=== PATIENT | female | born 1995 | race Two or more races ===

== ENCOUNTER 2022-09-22 15:33 | Emergency (ER) | payer SELFPAY ==
--- NOTE | 2022-09-22 16:02 | ED Physician Documentation ---
History of Present Illness - Stated complaint Stated Complaint: FEM - Additonal information Additional information: 27-year-old female presents to the emergency department for evaluation of lower pelvic pain and vaginal bleeding in the first trimester . LMP 08/06/2022. G1, P0. Patient states that last night she noticed some blood after urinating that she describes as bright red. Today she felt like she was having black dry discharge. No fevers. She does endorse some pain in her right lower abdomen. No pertinent past surgical history. Taking vitamins only. Has not yet established with an OB provider. History was exceedingly difficult to achieve. The patient hails from [facility] and speaks [place] though our hand binder stripper #[id number] seem to have a difficult time understanding the patient. However she does appear alert and well with normal vital signs for age. Review of Systems Unable to obtain: Other (History obtained with hand binder stripper #[id number]. Very difficult to achieve even with the hand binder stripper as I believe the 2 parties are speaking different dialect's of [place]) GI: reports: Abdominal Pain : reports: LMP (08/06/2022), Vaginal bleeding, Now EGA Skin: reports: Reviewed and negative Musculoskeletal: reports: Reviewed and negative PD PAST MEDICAL HISTORY - Present Medications Home Medications: Ambulatory Orders Medication Instructions Recorded Confirmed Pnv No.95/Ferrous Fum/Folic AC 1 tab PO DAILY 09/22/22 09/22/22 [ Tablet] - Allergies Allergies/Adverse Reactions: Allergies Allergy/AdvReac Type Severity Reaction Status Date / Time aspirin Allergy Unknown Verified 09/22/22 16:02 PD ED PE NORMAL - General General: Alert and oriented X 3, No acute distress, Well developed/nourished - HEENT HEENT: Atraumatic, Moist mucous membranes - Neck Neck: Supple, no meningeal sign - Cardiac Cardiac: RRR, No murmur - Respiratory Respiratory: No respiratory distress, Clear bilaterally - Abdomen Abdomen: Normal bowel sounds, Soft, Other (No surgical scars on abdomen). No: Non tender (Mild tenderness elicited with palpation of the right lower quadrant and lower pelvic region without guarding or rebound.) - Derm Derm: Normal color, Warm and dry, No rash - Extremities Extremities: No deformity - Neuro Neuro: Alert and oriented X 3, property claims adjuster 2-12 intact Eye Opening: Spontaneous Motor: Obeys Commands Verbal: Oriented GCS Score: 15 Results - Vitals Vitals: Vital Signs - 24 hr 09/22/22 15:53 Temperature 35.9 C L Heart Rate 74 Respiratory 20 Rate Blood Pressure 120/77 O2 Saturation 99 Oxygen O2 Source Room air - Labs Labs: Laboratory Tests 09/22/22 09/22/22 09/22/22 16:06 16:06 16:06 WBC 9.5 RBC 4.63 Hgb 13.3 Hct 39.7 MCV 85.7 MCH 28.7 MCHC 33.5 RDW 13.8 Plt Count 383 MPV 9.7 Neut # (Auto) 5.9 Lymph # (Auto) 2.7 Kern # (Auto) 0.7 Eos # (Auto) 0.1 Baso # (Auto) 0.0 Absolute Nucleated RBC 0.00 Nucleated RBC % 0.0 Sodium 134 L Potassium 3.6 Chloride 104 Carbon Dioxide 23 Anion Gap 7.0 BUN 8 Creatinine 0.5 Estimated GFR (MDRD) 146 Glucose 104 H Calcium 8.6 Total Bilirubin 0.5 AST 15 ALT 16 Alkaline Phosphatase 81 Total Protein 7.2 Albumin 3.6 Globulin 3.6 Albumin/Globulin Ratio 1.0 Lipase 34 HCG, Quant Urine Color Urine Clarity Urine pH Ur Specific Argyle Urine Protein Urine Glucose (UA) Urine Ketones Urine Occult Blood Urine Nitrite Urine Bilirubin Urine Urobilinogen Ur Leukocyte Esterase Urine RBC Urine WBC Ur Squamous Epith Cells Urine Bacteria Urine Mucus Ur Microscopic Review Urine Culture Comments Blood Type O POSITIVE 09/22/22 09/22/22 16:06 16:16 WBC RBC Hgb Hct MCV MCH MCHC RDW Plt Count MPV Neut # (Auto) Lymph # (Auto) Kern # (Auto) Eos # (Auto) Baso # (Auto) Absolute Nucleated RBC Nucleated RBC % Sodium Potassium Chloride Carbon Dioxide Anion Gap BUN Creatinine Estimated GFR (MDRD) Glucose Calcium Total Bilirubin AST ALT Alkaline Phosphatase Total Protein Albumin Globulin Albumin/Globulin Ratio Lipase HCG, Quant 87441.00 Urine Color YELLOW Urine Clarity CLEAR Urine pH 7.0 Ur Specific Argyle 1.015 Urine Protein NEGATIVE Urine Glucose (UA) NEGATIVE Urine Ketones NEGATIVE Urine Occult Blood SMALL H Urine Nitrite NEGATIVE Urine Bilirubin NEGATIVE Urine Urobilinogen 0.2 (NORMAL) Ur Leukocyte Esterase NEGATIVE Urine RBC 0-5 Urine WBC 0-3 Ur Squamous Epith Cells MOD Squamous H Urine Bacteria Few Urine Mucus Few Strands Ur Microscopic Review INDICATED Urine Culture Comments NOT INDICATED Blood Type - Rads (name of study) OB US Relevant Findings:: Other (Per orthopedic radiologic technologist 5-week 5-day fetus with yolk sac but no pole. 2.8 cm right ovarian cyst. No complicating findings.) PD Medical Decision Making - ED course Complexity details: reviewed results, re-evaluated patient, d/w patient ED course: 27-year-old female who is presents emergency department for evaluation of vaginal spotting that began yesterday. LMP 08/06/2022. Today labs show no evidence of urinary tract infection. CBC and electrolytes as interpreted by myself are unremarkable. Her hCG is over 32,000. She is Rh+. We did do an OB ultrasound that showed a 5-week 5-day fetus with yolk sac but no pole. There was a right ovarian cyst. No complicating features with the and nothing to suggest ectopic/heterotopic. I suspect that the vaginal spotting was implantation. I discussed the labs and imaging finding with the patient and her using a travertine installer. They have been given resources to follow-up with OB. The usual emergent return precautions for worsening symptoms were discussed. Departure - Departure Disposition: 01 Home, Self Care Clinical Impression: Vaginal bleeding affecting early Condition: Stable Record reviewed to determine appropriate education?: Yes Comments: The ultrasound showed that you are 5 weeks 5 days . It is too early at this time to see a heart rate on the baby. There is a small ovarian cyst On the right ovary which is a common finding. Your labs today in the emergency department did not show any worrisome findings.. Continue to follow closely with OB and schedule an appointment as soon as you are able. Continue to take your vitamins Reasons to return to the emergency department would include heavy vaginal bleeding where you saturate a pad every hour for 4 more hours, any fevers, severe abdominal pain, uncontrolled vomiting La ecografa mostr que tiene 5 semanas y 5 sullivan de embarazo. Es demasiado pronto en [place] momento para maureen shara frecuencia cardaca en el beb. Hay un pequeo quiste ovrico en el ovario derecho que es un hallazgo comn. Julia laboratorios de hoy en el departamento de emergencias no mostraron ningn hallazgo preocupante. Contine siguiendo de cerca con el obstetra y programe shara ruddy coello pronto jerel pueda. Contine tomando julia vitaminas prenatales Las razones para regresar al departamento de emergencias incluiran sangrado vaginal abundante donde satura shara toalla sanitaria cada hora radha 4 horas ms, fiebre, dolor abdominal intenso, vmitos incontrolables
[2022-09-22 16:07] VITALS: BP 120/77
[2022-09-22 16:22] LABS: BASOPHILS % (AUTO) 0.4 %; EOSINOPHILS # (AUTO) 0.1 10^3/uL (0.0-0.7); EOSINOPHILS % (AUTO) 1.4 %; HCT - HEMATOCRIT 39.7 % (37.0-47.0); HGB - HEMOGLOBIN 13.3 g/dL (12.0-16.0); LYMPHOCYTES # (AUTO) 2.7 10^3/uL (1.5-3.5); LYMPHOCYTES % (AUTO) 28.3 %; MEAN CORPUSCULAR HEMOGLOBIN 28.7 pg (27.0-31.0); MEAN CORPUSCULAR HGB CONC 33.5 g/dL (32.0-36.0); MEAN CORPUSCULAR VOLUME 85.7 fL (81.0-99.0); MEAN PLATELET VOLUME 9.7 fL (7.9-10.8); MONOCYTES # (AUTO) 0.7 10^3/uL (0.0-1.0); MONOCYTES % (AUTO) 7.8 %; NEUTROPHILS # (AUTO) 5.9 10^3/uL (1.5-6.6); NEUTROPHILS % (AUTO) 61.7 %; PLT - PLATELET COUNT 383 10^3/uL (130-450); RED BLOOD COUNT 4.63 10^6/uL (4.20-5.40); RED CELL DISTRIBUTION WIDTH 13.8 % (12.0-15.0); WHITE BLOOD COUNT 9.5 x10^3/uL (4.8-10.8)
[2022-09-22 16:26] LABS: BILIRUBIN,URINE NEGATIVE (NEGATIVE); GLUCOSE, URINE (UA) NEGATIVE (NEGATIVE); KETONES,URINE (UA) NEGATIVE (NEGATIVE); LEUKOCYTE ESTERASE, URINE NEGATIVE (NEGATIVE); NITRITE,URINE NEGATIVE (NEGATIVE); OCCULT BLOOD,URINE SMALL (NEGATIVE); PROTEIN,URINE NEGATIVE (NEGATIVE); UROBILINOGEN,URINE 0.2 (NORMAL) E.U./dL (NORMAL)
[2022-09-22 16:29] LABS: ALBUMIN 3.6 g/dL (3.2-5.5); BILIRUBIN,TOTAL 0.5 mg/dL (0.2-1.0); CALCIUM 8.6 mg/dL (8.5-10.3); CREATININE 0.5 mg/dL (0.4-1.0); POTASSIUM 3.6 mmol/L (3.5-5.0); TOTAL PROTEIN 7.2 g/dL (6.7-8.2)
[2022-09-22 16:30] LABS: CLARITY,URINE CLEAR (CLEAR)
[2022-09-22 16:33] LABS: RBC,URINE 0-5 /HPF (0-5); SQUAMOUS EPITHELIAL CELL,UR MOD Squamous (<= Few); WBC,URINE 0-3 /HPF (0-5)
[2022-09-22 16:34] LABS: BACTERIA,URINE Few /HPF (None Seen); MUCUS,URINE Few Strands
--- NOTE | 2022-09-22 18:15 | Ultrasound Report ---
PROCEDURE: OB First Trimester INDICATIONS: vaginal bleeding OUTSIDE/PRIOR DATING DATA: Last menstrual period (LMP): Unknown. LMP-based estimated date of delivery (PHAN): Unknown. First dating scan (date and location): 09/22/2022. Estimated date of delivery (PHAN) from first dating scan: 05/20/2023. TECHNIQUE: Real-time scanning was performed of the fetus and maternal pelvic organs, with image documentation. Transabdominal and transvaginal. COMPARISON: None. FINDINGS: Intrauterine gestational sac present. Embryo: Intrauterine gestational sac measuring is 0.94 cm corresponding to estimated gestational age 5 weeks 5 days. Heart rate: Not detected at this time. Other: A yolk sac is seen. No perigestational fluid collection. Measurement variability in dating: +/- 4 weeks by LMP, +/- 7 days by mean sac diameter (use before 6 weeks gestation if crown-rump length not able to be measured), +/- 5 days by crown-rump length (6-12 weeks gestation). Maternal organs: Ovaries appear within normal limits. Simple right ovarian cyst measuring 3.2 cm. IMPRESSION: 1. Intrauterine gestational sac. Estimated gestational age 5 weeks 5 days. No pole at this time . A yolk sac is seen. Recommend short-term follow-up OB ultrasound. 2. No perigestational hemorrhage. Reviewed by: Tj Oswald MD on 09/22/2022 6:13 PM PDT Approved by: Tj Oswald MD on 09/22/2022 6:13 PM PDT Station ID: [id number]
--- NOTE | 2022-09-22 18:15 | Ultrasound Report ---
PROCEDURE: OB First Trimester INDICATIONS: vaginal bleeding OUTSIDE/PRIOR DATING DATA: Last menstrual period (LMP): Unknown. LMP-based estimated date of delivery (PHAN): Unknown. First dating scan (date and location): 09/22/2022. Estimated date of delivery (PHAN) from first dating scan: 05/20/2023. TECHNIQUE: Real-time scanning was performed of the fetus and maternal pelvic organs, with image documentation. Transabdominal and transvaginal. COMPARISON: None. FINDINGS: Intrauterine gestational sac present. Embryo: Intrauterine gestational sac measuring is 0.94 cm corresponding to estimated gestational age 5 weeks 5 days. Heart rate: Not detected at this time. Other: A yolk sac is seen. No perigestational fluid collection. Measurement variability in dating: +/- 4 weeks by LMP, +/- 7 days by mean sac diameter (use before 6 weeks gestation if crown-rump length not able to be measured), +/- 5 days by crown-rump length (6-12 weeks gestation). Maternal organs: Ovaries appear within normal limits. Simple right ovarian cyst measuring 3.2 cm. IMPRESSION: 1. Intrauterine gestational sac. Estimated gestational age 5 weeks 5 days. No pole at this time . A yolk sac is seen. Recommend short-term follow-up OB ultrasound. 2. No perigestational hemorrhage. Reviewed by: Tj Oswald MD on 09/22/2022 6:14 PM PDT Approved by: Tj Oswald MD on 09/22/2022 6:14 PM PDT Station ID: [id number]
== END 2022-09-22 18:03 | disposition home or self-care (01) ==
LOC: ED 15:33
DX: O20.9 Hemorrhage in early pregnancy, unspecified (principal); Z3A.01 Less than 8 weeks gestation of pregnancy
CPT/HCPCS: 36415; 80053; 81001; 81003; 83690; 84702; 85025; 86900; 86901; 87086; 99283; 99284

== ENCOUNTER 2022-10-16 08:00 | Outpatient (CLI) | payer MEDICAID ==
[2022-10-16 17:13] LABS: BILIRUBIN,URINE NEGATIVE (NEGATIVE); GLUCOSE, URINE (UA) NEGATIVE (NEGATIVE); KETONES,URINE (UA) NEGATIVE (NEGATIVE); LEUKOCYTE ESTERASE, URINE NEGATIVE (NEGATIVE); NITRITE,URINE NEGATIVE (NEGATIVE); OCCULT BLOOD,URINE NEGATIVE (NEGATIVE); PROTEIN,URINE NEGATIVE (NEGATIVE); UROBILINOGEN,URINE 0.2 (NORMAL) E.U./dL (NORMAL)
[2022-10-16 17:54] LABS: AMORPHOUS SEDIMENT,UR Few /LPF; BACTERIA,URINE Many /HPF (None Seen); CLARITY,URINE HAZY (CLEAR); CRYSTALS,URINE 3-5 Calcium Oxalate /LPF; RBC,URINE 0-5 /HPF (0-5); SQUAMOUS EPITHELIAL CELL,UR MANY Squamous (<= Few)
== END 2022-10-16 23:59 | disposition home or self-care (01) ==
LOC: LAB.WC 08:00
PROVIDERS: ATTEND Nurse Practitioner
DX: Z34.90 Encounter for supervision of normal pregnancy, unspecified, unspecified trimester (principal)
CPT/HCPCS: 81001; 87086

== ENCOUNTER 2022-11-10 12:45 | Outpatient (CLI) | payer MEDICAID ==
[2022-11-10 13:01] LABS: BASOPHILS % (AUTO) 0.3 %; EOSINOPHILS # (AUTO) 0.1 10^3/uL (0.0-0.7); EOSINOPHILS % (AUTO) 0.9 %; HCT - HEMATOCRIT 36.7 % (37.0-47.0); HGB - HEMOGLOBIN 12.3 g/dL (12.0-16.0); LYMPHOCYTES # (AUTO) 2.1 10^3/uL (1.5-3.5); LYMPHOCYTES % (AUTO) 19.5 %; MEAN CORPUSCULAR HGB CONC 33.5 g/dL (32.0-36.0); MEAN CORPUSCULAR VOLUME 86.6 fL (81.0-99.0); MEAN PLATELET VOLUME 9.4 fL (7.9-10.8); MONOCYTES # (AUTO) 0.7 10^3/uL (0.0-1.0); MONOCYTES % (AUTO) 6.1 %; NEUTROPHILS # (AUTO) 7.8 10^3/uL (1.5-6.6); NEUTROPHILS % (AUTO) 72.7 %; PLT - PLATELET COUNT 370 10^3/uL (130-450); RED BLOOD COUNT 4.24 10^6/uL (4.20-5.40); RED CELL DISTRIBUTION WIDTH 13.7 % (12.0-15.0); WHITE BLOOD COUNT 10.7 x10^3/uL (4.8-10.8)
[2022-11-10 17:24] LABS: BILIRUBIN,URINE NEGATIVE (NEGATIVE); GLUCOSE, URINE (UA) NEGATIVE (NEGATIVE); KETONES,URINE (UA) NEGATIVE (NEGATIVE); LEUKOCYTE ESTERASE, URINE NEGATIVE (NEGATIVE); NITRITE,URINE NEGATIVE (NEGATIVE); OCCULT BLOOD,URINE NEGATIVE (NEGATIVE); PH,URINE 7.5 PH (5.0-7.5); PROTEIN,URINE NEGATIVE (NEGATIVE); UROBILINOGEN,URINE 1 (NORMAL) E.U./dL (NORMAL)
[2022-11-10 18:16] LABS: CLARITY,URINE CLEAR (CLEAR); RBC,URINE None Seen /HPF (0-5); SQUAMOUS EPITHELIAL CELL,UR MOD Squamous (<= Few)
[2022-11-10 18:17] LABS: BACTERIA,URINE Few /HPF (None Seen); CRYSTALS,URINE 3-5 Calcium Oxalate /LPF; MUCUS,URINE Moderate Strands
[2022-11-11 05:12] LABS: HBsAG SCREEN Negative (Negative)
[2022-11-11 07:09] LABS: HCV AB Non Reactive (Non Reactive); HIV SCREEN 4TH GENERATION Non Reactive (Non Reactive); RPR Non Reactive (Non Reactive)
[2022-11-11 09:09] LABS: VARICELLA-ZOSTER AB IGG 664 index (Immune >165)
== END 2022-11-10 12:46 | disposition home or self-care (01) ==
LOC: LAB 12:45
PROVIDERS: ATTEND Nurse Practitioner
DX: Z34.90 Encounter for supervision of normal pregnancy, unspecified, unspecified trimester (principal)
CPT/HCPCS: 36415; 81001; 85025; 86592; 86762; 86787; 86803; 86850; 86900; 86901; 87086; 87340; 87389

== ENCOUNTER 2023-01-02 14:03 | Outpatient (CLI) | payer MEDICAID ==
--- NOTE | 2023-01-02 16:27 | Ultrasound Report ---
PROCEDURE: OB 14+ Weeks INDICATIONS: SUPERVISION OF OUTSIDE/PRIOR DATING DATA: Last menstrual period (LMP): 08/06/2022. LMP-based estimated date of delivery (PHAN): 05/13/2023. First dating scan (date and location): 09/22/2022. Estimated date of delivery (PHAN) from first dating scan: 05/20/2023. The below data below was generated using the PHAN of 05/23/2023 TECHNIQUE: Real-time scanning was performed of the fetus, with image documentation and biometric measurements. Endovaginal scanning: Not performed. COMPARISON: 09/22/2022 FINDINGS: General: A single living intrauterine gestation is present. Presentation: Breech Placenta: Placental position is posterior, without previa. Amniotic fluid index: 18.5 cm, within normal limits for gestational age. heart rate: 140 beats per minute. Maternal cervical canal: 5.4 cm long; normal length is 2.5 cm or more. biometrics: Biparietal diameter: 4.7 cm, 20 weeks 2 days Head circumference: 17.0 cm, 19 weeks 4 days Abdominal circumference: 14.7 cm, 20 weeks Femur length: 3.14 cm, 19 weeks 5 days Estimated gestational age from initial scan: 19 weeks 6 days Composite gestational age from present scan: 19 weeks 6 days Estimated weight and percentile: 319 g, 47th percentile Measurement variability for biometric dating: +/- 10 days from 12-20 weeks gestation, +/- 2 weeks fro m 20-30 weeks gestation, +/- 3 weeks for 30 weeks gestation or later. Anatomic survey: Neuro: Ventricles are non-dilated at less than 10 mm. Cisterna magna is normal at 3-11 mm. Cerebel lum is normal in size and morphology. Nuchal skin fold: Normal at less than 6 mm between 14-20 weeks gestational age. Face: Nose and lips, facial profile are normal. Spine: No evidence for spina bifida. Heart: 4-chambered heart is present. Outflow tracts not evaluated. Diaphragm: Diaphragm is intact. Stomach: Left-sided stomach is present. Kidneys: No hydronephrosis. Normal is less than 5 mm in 2nd trimester, less than 7 mm in 3rd trimester. Cord: 3-vessel cord has orthotopic insertion. Bladder: Normal in size. Extremities: Not adequately evaluated. IMPRESSION: Single living intrauterine at 19 weeks 6 days, PHAN of 05/23/2023. Estimated weight of 319 g, 47th percentile. Cardiac outflow tracts not evaluated, and extremities are not adequately evaluated. Otherwise, normal anatomy survey. Reviewed by: Sanford Marx on 01/02/2023 4:26 PM PDT Approved by: Sanford Marx on 01/02/2023 4:26 PM PDT Station ID: [id number]
== END 2023-01-02 14:04 | disposition home or self-care (01) ==
LOC: DI 14:03
PROVIDERS: ATTEND Obstetrics & Gynecology
DX: Z34.92 Encounter for supervision of normal pregnancy, unspecified, second trimester (principal)

== ENCOUNTER 2023-01-05 08:00 | Outpatient (CLI) | payer MEDICAID ==
[2023-01-05 16:26] LABS: BILIRUBIN,URINE NEGATIVE (NEGATIVE); GLUCOSE, URINE (UA) NEGATIVE (NEGATIVE); KETONES,URINE (UA) TRACE mg/dL (NEGATIVE); LEUKOCYTE ESTERASE, URINE TRACE (NEGATIVE); NITRITE,URINE NEGATIVE (NEGATIVE); OCCULT BLOOD,URINE NEGATIVE (NEGATIVE); PROTEIN,URINE NEGATIVE (NEGATIVE); UROBILINOGEN,URINE 0.2 (NORMAL) E.U./dL (NORMAL)
[2023-01-05 16:28] LABS: CLARITY,URINE CLEAR (CLEAR)
[2023-01-05 16:35] LABS: BACTERIA,URINE Many /HPF (None Seen); CRYSTALS,URINE 0-2 Calcium Oxalate /LPF; RBC,URINE 0-5 /HPF (0-5); SQUAMOUS EPITHELIAL CELL,UR MOD Squamous (<= Few)
== END 2023-01-05 23:59 | disposition home or self-care (01) ==
LOC: LAB 08:00
PROVIDERS: ATTEND Obstetrics & Gynecology
DX: R30.0 Dysuria (principal)
CPT/HCPCS: 81001; 87086

== ENCOUNTER 2023-03-08 09:51 | Outpatient (CLI) | payer MEDICAID ==
[2023-03-08 11:14] LABS: HCT - HEMATOCRIT 31.6 % (37.0-47.0); HGB - HEMOGLOBIN 10.3 g/dL (12.0-16.0); MEAN CORPUSCULAR HEMOGLOBIN 29.2 pg (27.0-31.0); MEAN CORPUSCULAR HGB CONC 32.6 g/dL (32.0-36.0); MEAN CORPUSCULAR VOLUME 89.5 fL (81.0-99.0); MEAN PLATELET VOLUME 9.5 fL (7.9-10.8); RED BLOOD COUNT 3.53 10^6/uL (4.20-5.40); RED CELL DISTRIBUTION WIDTH 13.6 % (12.0-15.0)
== END 2023-03-08 09:52 | disposition home or self-care (01) ==
LOC: LAB 09:51
PROVIDERS: ATTEND Obstetrics & Gynecology
DX: Z34.90 Encounter for supervision of normal pregnancy, unspecified, unspecified trimester (principal)
CPT/HCPCS: 36415; 82950; 85027; 86850

== ENCOUNTER 2023-03-08 15:55 | Outpatient (CLI) | payer MEDICAID ==
--- NOTE | 2023-03-08 17:26 | Ultrasound Report ---
PROCEDURE: OB F/U or Repeat INDICATIONS: SUPERVISION OF OUTSIDE/PRIOR DATING DATA: Last menstrual period (LMP): 08/06/2022. LMP-based estimated date of delivery (PHAN): 05/13/2023. First dating scan (date and location): 09/22/2022. Estimated date of delivery (PHAN) from first dating scan: 08/18/2023. The below data below was generated using the clinical PHAN of 05/23/2023 TECHNIQUE: Real-time scanning was performed of the fetus, with image documentation. Endovaginal scanning: Not performed. COMPARISON: OB ultrasound 01/02/2023. FINDINGS: General: A single living intrauterine gestation is present. Presentation: Breech Placenta: Placental position is posterior fundal, without previa. Amniotic fluid index: 21 cm, within normal limits for gestational age. Largest pocket 6.8 cm. heart rate: 143 beats per minute. Maternal cervical canal: 3.8 cm long; normal length is 2.5 cm or more. Estimated gestational age from initial scan: 29 weeks 1 day Other: RVOT and LVOT are within normal limits. Profile, nose and lips, and right and left extremity a re within normal limits. IMPRESSION: 1. Marsh living intrauterine at 29 weeks 1 day based on prior dating. 2. Normal placenta and amniotic fluid. 3. RVOT and LVOT heart views are within normal limits. Profile, nose and lips, and right and left ext remity are within normal limits. Reviewed by: Tj Oswald MD on 03/08/2023 5:24 PM PST Approved by: Tj Oswald MD on 03/08/2023 5:24 PM PST Station ID: [id number]
== END 2023-03-08 15:56 | disposition home or self-care (01) ==
LOC: DI 15:55
PROVIDERS: ATTEND Obstetrics & Gynecology
DX: Z34.92 Encounter for supervision of normal pregnancy, unspecified, second trimester (principal)
CPT/HCPCS: 36415; 82950; 85027; 86850

== ENCOUNTER 2023-03-16 14:20 | Outpatient (CLI) | payer MEDICAID ==
[2023-03-16 14:54] LABS: CREATININE 0.4 mg/dL (0.6-1.3); URIC ACID 3.3 mg/dL (2.3-6.6)
[2023-03-16 15:05] LABS: BILIRUBIN,URINE NEGATIVE (NEGATIVE); GLUCOSE, URINE (UA) NEGATIVE (NEGATIVE); KETONES,URINE (UA) NEGATIVE (NEGATIVE); LEUKOCYTE ESTERASE, URINE NEGATIVE (NEGATIVE); NITRITE,URINE NEGATIVE (NEGATIVE); OCCULT BLOOD,URINE NEGATIVE (NEGATIVE); PH,URINE 6.5 PH (5.0-7.5); PROTEIN,URINE NEGATIVE (NEGATIVE); UROBILINOGEN,URINE 0.2 (NORMAL) E.U./dL (NORMAL)
[2023-03-16 15:28] LABS: BACTERIA,URINE Few /HPF (None Seen); CLARITY,URINE CLEAR (CLEAR); MUCUS,URINE Few Strands; RBC,URINE 0-5 /HPF (0-5); SQUAMOUS EPITHELIAL CELL,UR MOD Squamous (<= Few); WBC,URINE 0-3 /HPF (0-5)
[2023-03-16 15:33] LABS: CREATININE,URINE 79.6 mg/dL; PROTEIN/CREATININE RATIO,URINE 0.2 (<=0.2)
== END 2023-03-16 14:21 | disposition home or self-care (01) ==
LOC: LAB 14:20
PROVIDERS: ATTEND Nurse Practitioner
DX: M79.644 Pain in right finger(s) (principal)
CPT/HCPCS: 36415; 81001; 82565; 82570; 82728; 84156; 84520; 84550; 85651

== ENCOUNTER 2023-03-29 12:15 | Observation (INO) | payer MEDICAID ==
[2023-03-29] MEDS ORDERED: ACETAMINOPHEN 500 MG TABLET PO PRN (13:07)
--- NOTE | 2023-03-29 13:21 | PROVIDER PROGRESS NOTE ---
- HPI Current : Vital Signs Temperature 98.2 F 03/29/23 12:44 Heart Rate 92 03/29/23 12:44 Respiratory Rate 17 03/29/23 12:44 Blood Pressure 108/71 03/29/23 12:44 O2 Saturation 98 03/29/23 12:44 Temperature 98.2 F 03/29/23 13:15 Heart Rate 92 03/29/23 12:44 Respiratory Rate 17 03/29/23 12:44 Blood Pressure 108/71 03/29/23 12:44 O2 Saturation 98 03/29/23 12:44 If not protocol: Oxygen Flow, liters/minute
[2023-03-29] MEDS ORDERED: BETAMETHASONE 30 MG/5 ML VIAL IM ONE (13:22)
[2023-03-29 13:41] LABS: RUPTURE OF MEMBRANES PLUS NEGATIVE (NEGATIVE)
[2023-03-29 15:04] LABS: BILIRUBIN,URINE NEGATIVE (NEGATIVE); GLUCOSE, URINE (UA) NEGATIVE (NEGATIVE); KETONES,URINE (UA) TRACE mg/dL (NEGATIVE); LEUKOCYTE ESTERASE, URINE NEGATIVE (NEGATIVE); NITRITE,URINE NEGATIVE (NEGATIVE); OCCULT BLOOD,URINE NEGATIVE (NEGATIVE); PROTEIN,URINE NEGATIVE (NEGATIVE); UROBILINOGEN,URINE 0.2 (NORMAL) E.U./dL (NORMAL)
[2023-03-29 15:09] LABS: CLARITY,URINE CLEAR (CLEAR)
[2023-03-29 15:16] LABS: BACTERIA,URINE None Seen /HPF (None Seen); RBC,URINE 0-5 /HPF (0-5); SQUAMOUS EPITHELIAL CELL,UR FEW Squamous (<= Few); WBC,URINE 0-3 /HPF (0-5)
[2023-03-29] MEDS ORDERED: MORPHINE 2 MG/ML CARPUJECT IM STA (15:35)
[2023-03-29] MEDS ORDERED: SODIUM CHLORIDE FLUSH 0.9% 10 ML SYRINGE IVP PRN (15:45)
[2023-03-29] MEDS ORDERED: LACTATED RINGERS 1,000 ML IV SCH (16:00)
--- NOTE | 2023-03-29 16:47 | HISTORY & PHYSICAL EXAMINATION ---
Admit History - Visit Reason Visit Reason: Contractions - : 1 Parity: 0 Risk/History: positive: None Smoking Status: Never smoker - Mother's Labs Mother's Blood Type: positive: O Mother's RH: positive: Positive GBS: positive: Other (Unknown) Rubella Status: positive: Immune - Other Maternal History Other Maternal History: HPI: Patient is a 27-year-old G1, P0 at 33 weeks 4 days gestation presenting for lower abdominal pain. This started approximately 3 days ago and is having intermittent low back pain that radiates to the front, but this has subsided. She has good movement. Denies loss of fluid. No PADRON/BV or RUQP. No vaginal bleeding. Denies nausea and vomiting. She does have significant dysuria and cramping sensation when voiding. Had similar episode in December. All other symptoms reviewed and were negative except per HPI. Course LMP: 08/06/22 PHAN by LMP: 05/13/23 US: in ER & by JL in clinic: 05/23/2023 Final PHAN: 05/23/2023 ANC c/b: 1. romansh speaking (originally a [place] dialect) -- resulted in delay of dating U/S - declines dating U/S, had one in ER at 5w, and another in clinic that affirms PHAN 05/23 2. no FOB / relationship problems - FOB presented with pt 12/08, and 01/05, and 01/30 -- pt is sorting through this, she lives with her parents who are supportive 3. gastritis Taking omeprazole, zofran 4. hemorrhoids / constipation takes mag 5. ASA allergy 6. chronic severe unilateral headaches discussed tylenol [X] sending neuro referral -- still no neuro appointment scheduled - re-sent, it had not been processed, they are working on it now. 7. flank pain 01/05 -- with burning while voiding, and mild CVAT, UDip ++ leuks, rest normal. gave 1g rocephin, sent macrobid Pre- Weight:116 BMI: 24.33 Blood type: O + Rh: positive Antibody: Negative CBC: PLT 370 HCT 36.7 HGB 12.3 RUB: Imm VZV: Imm HBsAg: negative HepC: Negative RPR/AB-EIA: NR HIV: NR PAP: 11/10 normal GC/CT: 11/10 negative HSV: Genetic testing: Covid: rcv'd already Flu: given 01/30 FAS: wnl, S=D, did not see outflow tracts or extremities well. [ ] repeat ordered 01/05 Placenta: posterior Cord: 3- Vessel CARTER: 18.5cm EFW: 319g; 47th%tile 50gm OGCT: 122 3HR GTT: TDAP: 03/02 Breast Pump: 03/02 3rd trimester H/H PLT GBS: PMH PCOS PSH No previous surgery OB History SH Denies tobacco, alcohol, drugs Family History Denies pertinent family history Allergies Aspirin: Nausea Medications Ferrous sulfate Omeprazole vitamin Physical exam: General: Alert, oriented, patient very uncomfortable appearing Head: Normal cephalic atraumatic Eyes: PERRLA, extraocular motions intact. Respiratory: Normal rate of respiration. No accessory muscle use, normal respiratory effort. Cardiovascular: Regular rate and rhythm Abdomen: Gravid, significant suprapubic tenderness. No CVA tenderness. No abdominal tenderness outside of the suprapubic area. Extremities: Normal range of motion Neuro: Oriented x3. Normal movements Psych: Appropriate mood and affect. Normal judgment and insight SVE: 0/0/-3 FHT: 120 bpm baseline, moderate variability, accelerations present, no decelerations. Reactive NST [place]: 2 to 4 minutes Plan 27-year-old G1, P0 at 33 weeks 4 days gestation admitted for concern for labor 1. contractions -Possibly false labor. Negative fibronectin, negative ROM plus. Patient was rechecked after 2 hours and did not make cervical change. -1 dose of IM betamethasone given. Will observe for further signs of labor. -Ceftriaxone should cover GBS and will start with a dose of this. If laboring, consider switching to ampicillin. -Admit for observation for pain control, assessment of labor. 2. Suprapubic tenderness -This appears like a significant UTI, however her UA is clear and culture not i ndicated. I am very surprised by this. -Will continue oral and IV hydration. -GC/CT/trichomonas pending. 3. Language barrier -Requiring [place] certified midwife - HPI Vital Signs Temperature 98.2 F 03/29/23 12:44 Heart Rate 92 03/29/23 12:44 Respiratory Rate 17 03/29/23 12:44 Blood Pressure 108/71 03/29/23 12:44 O2 Saturation 98 03/29/23 12:44 Temperature 98.2 F 03/29/23 13:15 Heart Rate 92 03/29/23 12:44 Respiratory Rate 17 03/29/23 12:44 Blood Pressure 108/71 03/29/23 12:44 O2 Saturation 98 03/29/23 12:44 If not protocol: Oxygen Flow, liters/minute Meds/Allgy - Home Medications Home Medications: Ambulatory Orders Medication Instructions Recorded Confirmed Pnv No.95/Ferrous Fum/Folic AC 1 tab PO DAILY 09/22/22 09/22/22 [ Tablet] - Allergies Allergies/Adverse Reactions: Allergies Allergy/AdvReac Type Severity Reaction Status Date / Time aspirin Allergy Unknown Verified 09/22/22 16:02 Physical - Abdominal Exam Vital Signs: Temp Pulse Resp BP Pulse Ox O2 Flow Rate 98.2 F 92 17 108/71 98 03/29/23 13:15 03/29/23 12:44 03/29/23 12:44 03/29/23 12:44 03/29/23 12:44 Plan for Labor - Plan For Labor I expect patient to be DC'd or transferred within 96 hours.: Yes
[2023-03-29] MEDS ORDERED: SODIUM CHLORIDE FLUSH 0.9% 10 ML SYRINGE IVP SCH (17:00)
[2023-03-29 17:13] LABS: BASOPHILS % (AUTO) 0.3 %; EOSINOPHILS % (AUTO) 0.1 %; HCT - HEMATOCRIT 35.7 % (37.0-47.0); HGB - HEMOGLOBIN 11.6 g/dL (12.0-16.0); LYMPHOCYTES # (AUTO) 1.1 10^3/uL (1.5-3.5); LYMPHOCYTES % (AUTO) 8.9 %; MEAN CORPUSCULAR HEMOGLOBIN 28.8 pg (27.0-31.0); MEAN CORPUSCULAR HGB CONC 32.5 g/dL (32.0-36.0); MEAN CORPUSCULAR VOLUME 88.6 fL (81.0-99.0); MEAN PLATELET VOLUME 10.2 fL (7.9-10.8); MONOCYTES # (AUTO) 0.3 10^3/uL (0.0-1.0); MONOCYTES % (AUTO) 2.5 %; NEUTROPHILS # (AUTO) 10.2 10^3/uL (1.5-6.6); NEUTROPHILS % (AUTO) 86.5 %; PLT - PLATELET COUNT 327 10^3/uL (130-450); RED BLOOD COUNT 4.03 10^6/uL (4.20-5.40); RED CELL DISTRIBUTION WIDTH 14.6 % (12.0-15.0); WHITE BLOOD COUNT 11.8 x10^3/uL (4.8-10.8)
[2023-03-29] MEDS: cefTRIAXone 1 GM in SODIUM CHLORIDE 0.9% MINIBAG 100 ML IV SCH (17:18)
[2023-03-29 17:27] LABS: ALBUMIN 3.6 g/dL (3.2-5.5); BILIRUBIN,TOTAL 0.4 mg/dL (0.2-1.0); CREATININE 0.4 mg/dL (0.6-1.3); POTASSIUM 3.9 mmol/L (3.5-4.5); TOTAL PROTEIN 7.1 g/dL (6.4-8.9)
[2023-03-29 18:33] LABS: BACTERIAL VAGINOSIS DNA NEGATIVE (NEGATIVE); CANDIDA GLABRATA DNA NEGATIVE (NEGATIVE); CANDIDA GROUP DNA NEGATIVE (NEGATIVE); CANDIDA KRUSEI DNA NEGATIVE (NEGATIVE); TRICHOMONAS VAGINALIS DNA NEGATIVE (NEGATIVE)
[2023-03-29 19:47] LABS: CHLAMYDIA TRACHOMATIS DNA NEGATIVE (NEGATIVE); NEISSERIA GONORRHOEAE DNA NEGATIVE (NEGATIVE)
[2023-03-29] MEDS: ACETAMINOPHEN 500 MG TABLET PO PRN (20:00)
--- NOTE | 2023-03-29 21:41 | Ultrasound Report ---
PROCEDURE: Renal (Retroperitoneal) INDICATIONS: UTI, pyelonephritis, like symptoms, TECHNIQUE: Real-time scanning was performed of the retroperitoneal organs, with image documentation. COMPARISON: None. FINDINGS: Kidneys: Kidneys are normal in size. Right kidney measures 11.1 cm long; left kidney measures 10.2 cm long. Right renal cortical thickness is 1.3 cm; left renal cortical thickness is 2.0 cm. Moderate left and mild right hydronephrosis. Possible right hydroureter. Bladder: Pre-void bladder volume is 1834 mL. Post-void residual is 1352 mL. Pre-void images demons trate no intraluminal masses or stones. Ureteral jets are not seen. (Of note, ureteral jets may not be detectable in up to 25% of cases due to insufficient differences in specific gravity between urete ral and bladder urine). Miscellaneous: No free abdominal fluid. Intrauterine with heart rate of 133 bpm. Ce rvix is closed measuring 4.8 cm. IMPRESSION: 1.Markedly distended urinary bladder with a large post void residual volume of 1352 mL, correlate wit h obstruction. 2.Moderate left and mild right hydronephrosis and proximal right hydroureter, likely secondary to mar kedly distended urinary bladder. 3.Live intrauterine . Findings were communicated to Dr. Arellano by the veterinary surgery technologist at the time the scan. Reviewed by: Jose Taylor MD on 03/29/2023 9:39 PM PST Approved by: Jose Taylor MD on 03/29/2023 9:39 PM PST Station ID: [id number]
[2023-03-29] MEDS: MORPHINE 2 MG/ML CARPUJECT IVP PRN (21:50)
[2023-03-30] MEDS ORDERED: LIDOCAINE 2% URO-JET 5 ML SYRINGE UR ONE ×2 (02:57→02:59)
[2023-03-30] MEDS: MORPHINE 2 MG/ML CARPUJECT IVP PRN (03:19)
[2023-03-30] MEDS: ACETAMINOPHEN 500 MG TABLET PO PRN ×2 (03:30→09:46)
[2023-03-30] MEDS: PHENAZOPYRIDINE 100 MG TABLET PO SCH ×3 (04:01→13:43)
[2023-03-30] MEDS: cefTRIAXone 1 GM in SODIUM CHLORIDE 0.9% MINIBAG 100 ML IV SCH (09:39)
--- NOTE | 2023-03-30 10:53 | PROVIDER PROGRESS NOTE ---
Subjective - Subjective Subjective: Subjective: Patient is a 27-year-old G1, P0 at 33 weeks gestation here with urinary retention. Overnight events: Straight catheterization that provided her great relief. Subsequent bladder scan showed some retained urine and Nicole was placed, however had minimal urine output since. Back and low belly pain greatly improved. Most of her pain has resolved, but now urethral/introital pain from catheterization. Some issue with constipation. No history of herpes. Physical exam: Constitutional: alert, oriented, visibly uncomfortable Cardiovascular: Regular rate and rhythm. No murmurs, rubs, gallops. Respiratory: No respiratory distress. Clear to auscultation bilaterally. Abdomen: Soft, decreased tenderness and low belly. No CVA tenderness. Extremities: No swelling or tenderness. No cords. Distal pulses intact. Psych: affect and mood appropriate, normal interaction, good eye contact. Assessment and plan 1. Acute urinary retention: -Plan for voiding trial and PVR. -If unsuccessful, will need catheter. She is very hesitant to do this due to the pain. We did discuss that her degree of obstruction was very significant with almost 2 L on ultrasound. This can lead to bladder or kidney damage. Could do intermittent catheterization, but will be very difficult to perform and perform cleanly while . Would need indwelling catheter with weekly voiding trials. Will try to help with regular bowel movements and decrease pain with urination to allowed her to void. -Phenazopyridine, lidocaine jelly, tamsulosin to assist. Consulted urology and he is in agreement with this plan. -Discussed with patient that this may not improve until after delivery which is still over a month away. 2. False labor -Antibiotics discontinued -Will finish course of betamethasone 3. 33 weeks gestation -NST every shift 4. Constipation -Docusate and MiraLAX added 5. Tachycardia -Mild, likely due to pain. No infectious processes detected. 6. urethral pain -As above 7. [place] speaking only Objective - Vital Signs/Intake & Output Reviewed Vital Signs: Yes Vital Signs: Vital Signs x48h Temp Pulse Pulse Resp BP Pulse Ox 03/30/23 10:31 98.4 F 102 H 19 99/58 L 99 03/30/23 08:19 98.6 F 106 H 17 104/66 95 03/30/23 05:48 99 18 95/50 L 96 Intake & Output: Intake & Output 03/27/23 03/28/23 03/29/23 03/30/23 23:59 23:59 23:59 23:59 Intake Total 1012 Output Total 600 315 Balance 412 -315 - Lab Results Fish Bones: 03/29/23 17:02 03/29/23 17:02 Other Labs: Lab Results x24hrs 03/29/23 03/29/23 03/29/23 Range/Units 17:02 17:02 14:45 WBC 11.8 H (4.8-10.8) x10^3/uL RBC 4.03 L (4.20-5.40) 10^6/uL Hgb 11.6 L (12.0-16.0) g/dL Hct 35.7 L (37.0-47.0) % MCV 88.6 (81.0-99.0) fL MCH 28.8 (27.0-31.0) pg MCHC 32.5 (32.0-36.0) g/dL RDW 14.6 (12.0-15.0) % Plt Count 327 (130-450) 10^3/uL MPV 10.2 (7.9-10.8) fL Neut # (Auto) 10.2 H (1.5-6.6) 10^3/uL Lymph # (Auto) 1.1 L (1.5-3.5) 10^3/uL Boundary # (Auto) 0.3 (0.0-1.0) 10^3/uL Eos # (Auto) 0.0 (0.0-0.7) 10^3/uL Baso # (Auto) 0.0 (0.0-0.1) 10^3/uL Absolute Nucleated RBC 0.00 x10^3/uL Nucleated RBC % 0.0 /100WBC Sodium 134 L (135-145) mmol/L Potassium 3.9 (3.5-4.5) mmol/L Chloride 104 (101-111) mmol/L Carbon Dioxide 19 L (21-32) mmol/L Anion Gap 11.0 (6-13) BUN 5 L (6-20) mg/dL Creatinine 0.4 L (0.6-1.3) mg/dL Estimated GFR (MDRD) 189 (>89) Glucose 91 (74-104) mg/dL Calcium 9.0 (8.5-10.3) mg/dL Total Bilirubin 0.4 (0.2-1.0) mg/dL AST 17 (10-42) IU/L ALT 13 (10-60) IU/L Alkaline Phosphatase 116 (42-121) IU/L Total Protein 7.1 (6.4-8.9) g/dL Albumin 3.6 (3.2-5.5) g/dL Globulin 3.5 (2.1-4.2) g/dL Albumin/Globulin Ratio 1.0 (1.0-2.2) Urine Color Urine Clarity (CLEAR) Urine pH (5.0-7.5) PH Ur Specific [place] (1.002-1.030) Urine Protein (NEGATIVE) mg/dL Urine Glucose (UA) (NEGATIVE) mg/dL Urine Ketones (NEGATIVE) mg/dL Urine Occult Blood (NEGATIVE) Urine Nitrite (NEGATIVE) Urine Bilirubin (NEGATIVE) Urine Urobilinogen (NORMAL) E.U./dL Ur Leukocyte Esterase (NEGATIVE) Urine RBC (0-5) /HPF Urine WBC (0-5) /HPF Ur Squamous Epith Cells (<= Few) Urine Bacteria (None Seen) /HPF Urine Culture Comments Membranes Rupture (NEGATIVE) C. glabrata (PCR) (NEGATIVE) C. krusei (PCR) (NEGATIVE) [place] species DNA (NEGATIVE) Chlam trachomat DNA PCR NEGATIVE (NEGATIVE) N.gonorrhoeae DNA (PCR) NEGATIVE (NEGATIVE) T. vaginalis (PCR) TNP (NEGATIVE) Bact Vaginosis (PCR) (NEGATIVE) Fibronectin (NEGATIVE)
[2023-03-30] MEDS ORDERED: polyethylene glycoL 3350 17 GM PACKET PO PRN (10:54)
[2023-03-30] MEDS ORDERED: DOCUSATE SODIUM 100 MG CAPSULE PO SCH (11:00)
[2023-03-30] MEDS ORDERED: TAMSULOSIN 0.4 MG CAPSULE PO SCH (11:00)
[2023-03-30] MEDS ORDERED: BETAMETHASONE 30 MG/5 ML VIAL IM ONE (13:30)
--- NOTE | 2023-03-30 14:00 | PROVIDER PROGRESS NOTE ---
- HPI Chief Complaint: Pain, non-labor Current : Current EDU 05/13/23 Gestation 33 Weeks and 5 Days 1 Para 0 Vital Signs Temperature 98.2 F 03/29/23 12:44 Heart Rate 92 03/29/23 12:44 Respiratory Rate 17 03/29/23 12:44 Blood Pressure 108/71 03/29/23 12:44 O2 Saturation 98 03/29/23 12:44 Temperature 98.4 F 03/30/23 12:19 Heart Rate 102 H 03/30/23 10:31 Respiratory Rate 19 03/30/23 10:31 Blood Pressure 99/58 L 03/30/23 10:31 O2 Saturation 99 03/30/23 10:31 If not protocol: Oxygen Flow, liters/minute - Exam NAD no increased work of breathing pain improved visibly gravid . - Procedures NST Procedure: NST Procedure Start Date 03/29/23 Start Time 12:41 Stop Time 13:09 Vibroacoustic Stimulation Used No Patient States Movement Yes Findings: monitoring reassuring pain is improved no longer regularly speedy - Plan Plan: Pt was under observation for the better part of 24h -- came in with severe pain - back pain / cramping / bladder pain. Was evaluated and had labor, UTI, pyelo, additional concerns ruled out was diagnosed with urinary retention had wright placed for several hours and then removed with trial of void with post void residual ultrasound done that showed decrease in volume after voiding and patient feels markedly better we have yet to identify a cause of her urinary retention precautions and instructions have been reviewed she reports feeling better aware that the urinary retention may return and if her symptoms re-present she needs to come back and then she would go home with a wright in place. all questions answered she is not in labor FWB reassuring.
--- NOTE | 2023-03-30 14:24 | Discharge Plan ---
Discharge Plan Problem Reviewed?: Yes Disposition: Home, Self Care Condition: Good Prescriptions: Acetaminophen [Tylenol] 1,000 mg PO Q6HR PRN #60 tab PRN Reason: Pain Or Fever > 38c (100.4f) Docusate Sodium 100Mg Capsule [Colace 100Mg Capsule] 100 mg PO BID #60 cap Tamsulosin [Flomax] 0.4 mg PO DAILY #30 cap polyethylene glycoL 3350 [Miralax] 17 gm PO DAILY PRN #60 packet PRN Reason: Bowel Protocol Phenazopyridine [Pyridium] 200 mg PO TID #90 tab Diet: Regular Activity Restrictions: No Restrictions Shower Restrictions: No Driving Restrictions: No Weight Bearing: Full Weight Instruction Topics: ED Retention Urinary Female Plan of Treatment: continue routine care Assessment: problems improved Additional Instructions or Follow Up instructions: precautions -- if pain returns, please call and come back. No Smoking: If you smoke, Please STOP! Call for help. Follow-up with: Bobo Arellano MD [Provider Admit Priv/Credential] -
--- NOTE | 2023-03-30 14:31 | Ultrasound Report ---
PROCEDURE: Abdomen Limited INDICATIONS: Urinary retension TECHNIQUE: Real-time focused scanning was performed of the abdomen, with image documentation. COMPARISONS: None. FINDINGS: Bladder is poorly visualized. Prevoid volume 6.7 cc. Postvoid residual 5.2 cc. Ureteral jets are not visualized. IMPRESSION: Poorly visualized bladder without distention. Reviewed by: Caren Syed MD on 03/30/2023 2:30 PM [facility] Approved by: Caren Syed MD on 03/30/2023 2:30 PM [facility] Station ID: [id number]
[2023-03-30 19:40] VITALS: BP 102/63; O2SAT 98
== END 2023-03-30 15:30 | disposition home or self-care (01) ==
LOC: WFO 12:15 → FBP 12:17 → WFO 15:44 → FBP 15:45
PROVIDERS: ADMIT Obstetrics & Gynecology; ATTEND Obstetrics & Gynecology
DX: O99.891 Other specified diseases and conditions complicating pregnancy (principal); R33.9 Retention of urine, unspecified; R51.9 Headache, unspecified; R30.0 Dysuria; M54.9 Dorsalgia, unspecified; O47.03 False labor before 37 completed weeks of gestation, third trimester; O99.613 Diseases of the digestive system complicating pregnancy, third trimester; K59.00 Constipation, unspecified; K29.70 Gastritis, unspecified, without bleeding; O22.43 Hemorrhoids in pregnancy, third trimester; Z3A.33 33 weeks gestation of pregnancy
CPT/HCPCS: 36415; 51701; 51702; 59025; 76705; 76770; 80053; 81001; 81514; 82731; 84112; 85025; 87086; 87491; 87591; 96365; 96372; 96375; 99215; A9270; G0378; J7120; 87661

== ENCOUNTER 2023-04-20 08:00 | Outpatient (CLI) | payer MEDICAID | END 2023-04-20 23:59 | disposition home or self-care (01) | LOC: LAB.WC 08:00 | PROVIDERS: ATTEND Obstetrics & Gynecology | DX: Z36.85 Encounter for antenatal screening for Streptococcus B (principal) | CPT/HCPCS: 87797 ==

== ENCOUNTER 2023-04-27 11:08 | Outpatient (CLI) | payer MEDICAID ==
[2023-04-27 14:03] VITALS: BP 103/65; O2SAT 95
--- NOTE | 2023-04-27 21:07 | PROVIDER PROGRESS NOTE ---
- HPI Chief Complaint: Decreased movement Current : Current EDU 05/23/23 Gestation 36 Weeks and 2 Days 1 Para 0 presented to clinic with much decreased movement. here with her partner. sent over to [facility] for monitoring. feels somewhat better after resting and watching monitor. visit with branch office administrator video. Vital Signs Temperature 99.0 F 04/27/23 10:50 Heart Rate 81 04/27/23 10:50 Respiratory Rate 17 04/27/23 10:50 Blood Pressure 103/65 04/27/23 10:50 O2 Saturation 95 04/27/23 10:50 Temperature 99.0 F 04/27/23 13:56 Heart Rate 81 04/27/23 10:50 Respiratory Rate 17 04/27/23 10:50 Blood Pressure 103/65 04/27/23 10:50 O2 Saturation 95 04/27/23 10:50 If not protocol: Oxygen Flow, liters/minute - Exam no distress. abdomen not tender. - Procedures OB Procedure Performed: NST Diagnosis/Indication for NST: Decreased movement NST Procedure: NST Procedure Start Date 04/27/23 Start Time 10:50 Stop Time 12:00 Vibroacoustic Stimulation Used No NST reviewed in real time. baseline 135. acels and no decels. looks great. Service Date of procedure: 04/27/23 Findings: reactive nst - Plan Plan: follow up Sunday to do NST again. sooner if less movement or labor.
== END 2023-04-27 12:09 | disposition home or self-care (01) ==
LOC: WFO 11:08 → FBP 11:10 → WFO 12:09
PROVIDERS: ATTEND Obstetrics & Gynecology
DX: O36.8130 Decreased fetal movements, third trimester, not applicable or unspecified (principal); Z3A.36 36 weeks gestation of pregnancy
CPT/HCPCS: 59025; 99215

== ENCOUNTER 2023-04-29 10:02 | Outpatient (CLI) | payer MEDICAID ==
[2023-04-29 10:36] VITALS: BP 104/66
[2023-04-29] MEDS: ACETAMINOPHEN 500 MG TABLET PO ONE (10:42)
--- NOTE | 2023-04-29 19:00 | PROCEDURE REPORT ---
- HPI Diagnosis/Indication for NST: Decreased movement Current EDU 05/23/23 Gestation 36 Weeks and 4 Days 1 Para 0 yesterday was here with decreased movement. Today baby is moving well. some URI sx graggin on for weeks. Otherwise feels ok. Vital Signs Temperature 98.6 F 04/29/23 10:13 Heart Rate 91 04/29/23 10:13 Respiratory Rate 17 04/29/23 10:13 Blood Pressure 104/66 04/29/23 10:13 Temperature 98.6 F 04/29/23 10:13 Heart Rate 91 04/29/23 10:13 Respiratory Rate 17 04/29/23 10:13 Blood Pressure 104/66 04/29/23 10:13 O2 Saturation If not protocol: Oxygen Flow, liters/minute - NST Procedure NST Procedure Start Date 04/29/23 Start Time 10:13 Stop Time 10:38 Vibroacoustic Stimulation Used No Patient States Movement Yes NST reviewed. baseline 135. moderate variability. Acels and no decels. - Results and Plan Findings/Impression: reactive NST Plan: Care scheduled.
== END 2023-04-29 10:50 | disposition home or self-care (01) ==
LOC: WFO 10:02 → FBP 10:06 → WFO 10:50
PROVIDERS: ATTEND Obstetrics & Gynecology
DX: O36.8130 Decreased fetal movements, third trimester, not applicable or unspecified (principal); Z3A.36 36 weeks gestation of pregnancy
CPT/HCPCS: 59025; A9270